=== PATIENT | male | born 1950 | race African-American/Black ===

== ENCOUNTER 2016-05-28 18:22 | Emergency (ER) | payer MEDICARE ==
[~2016-05-28 18:22] MED LIST: ASPI325T PO; FERR325T PO; REDPOW; VITA100017 PO; VITA20002 PO; ZOFR4TAB3 SL
[2016-05-28 18:26] VITALS: BP 154/86; PULSE 84; RESP 18; TEMP 98.6; O2SAT 98
[2016-05-28] MEDS ORDERED: SODIUM CHLOR 0.9% 1000 ML INJ 1,000 ML IV SCH (19:08)
--- NOTE | 2016-05-28 19:14 | PD ---
HPI Chief Complaint: Abdominal Pain Time Seen by Provider: 19:02 Travel History International Travel<30 days: No Contact w/Intl Traveler<30days: No Traveled to known affect area: No History of Present Illness HPI The patient is a 65-year-old male who presents to emergency department for abdominal pain. The patient has a history of previous CVA with hemorrhagic conversion and takes an aspirin daily. The patient however, is unable to speak after his previous CVA. The patient also has a history of diverticulitis with previous perforation, partial colectomy, colostomy with takedown, performed by his general surgeon, Dr. Servin. The states the patient is been doing well for several years, however, approximately 2 hours prior to arrival developed severe left lower quadrant abdominal pain. He's had multiple episodes of nausea and vomiting. His last bowel movement was earlier today, normal per his recollection, according to the . The patient is unable to provide any history, however, family bedside provides history. The also states the patient is sensitive to pain medication requests a low- dose of morphine, states he almost went into a coma with Dilaudid. Symptoms are moderate, possibly exacerbated by history of diverticulitis previous surgery , no current alleviating factors. The patient's primary physician is Dr. Hallman. [facility] Past Medical History Cancer: No Cardiovascular Problems: Yes (RAPID HEART RATE WITH SEPSIS AND DEHYDRATION) Cerebrovascular Accident: Yes (X2) Diabetes: Yes Diminished Hearing: No Diverticulitis: Yes Endocrine: No Gastrointestinal Disorders: Yes (COLOSTOMY, HX DIVERTICULITIES) GERD: Yes Genitourinary: No Hepatitis: No Hiatal Hernia: Yes Hypertension: Yes Immune Disorder: No Kidney Stones: Yes Musculoskeletal: No Neurologic: Yes (CVA - 2012, EXPRESSIVE APHASIA) Psychiatric: No Reproductive: No Respiratory: Yes Immunizations Current: No Sleep Apnea: Yes Thyroid Disease: No Past Surgical History Abdominal Surgery: Yes (colorectal surgery 2 times) AICD: No Cardiac Surgery: Yes Joint Replacement: No Pacemaker: No Other Surgery: Yes Social History Alcohol Use: No Tobacco Use: No Substance Use: No Allergies-Medications (Allergen,Severity, Reaction): Coded Allergies: Dilaudid (Verified Allergy, Severe, 05/28/16) GOES INTO COMA Reported Meds & Prescriptions Reported Meds & Active Scripts Active Reported Aspirin 325 Mg Tab 325 Mg PO DAILY Review of Systems Except as stated in HPI: all other systems reviewed are Neg General / Constitutional: No: Fever Cardiovascular: No: Chest Pain or Discomfort Respiratory: No: Shortness of Breath Gastrointestinal: Positive: Nausea, Vomiting, Abdominal Pain, No: Diarrhea, Constipation, Changes in Bowel Habits Physical Exam Narrative GENERAL: Awake, alert, 65-year-old male appears his stated age and appears in moderate discomfort. SKIN: Diaphoretic.. HEAD: Atraumatic. Normocephalic. EYES: No scleral icterus noted. ENT: No nasal bleeding or discharge. Mucous membranes pink and moist. NECK: Trachea midline. No JVD. CARDIOVASCULAR: Regular rate and rhythm. No murmur appreciated. RESPIRATORY: No accessory muscle use. Clear to auscultation. Breath sounds equal bilaterally. GASTROINTESTINAL: Abdomen tender palpation left lower quadrant and left upper quadrant. Mid abdominal scar. MUSCULOSKELETAL: No obvious deformities. No clubbing. No cyanosis. No edema. NEUROLOGICAL: Awake and alert. No obvious cranial nerve deficits. Motor grossly within normal limits. His able to say no, which means yes according to the .. PSYCHIATRIC: Appropriate mood and affect; insight and judgment normal. Data Data Last Documented VS Vital Signs Date Time Temp Pulse Resp B/P Pulse Ox O2 Delivery O2 Flow Rate FiO2 05/28/16 18:26 98.6 84 18 154/86 98 Orders Complete Blood Count With Diff (05/28/16 19:08) Comprehensive Metabolic Panel (05/28/16 19:08) Lipase (05/28/16 19:08) Lactic Acid (05/28/16 19:08) Prothrombin Time / Inr (Pt) (05/28/16 19:08) Act Partial Throm Time (Ptt) (05/28/16 19:08) Urinalysis - C+S If Indicated (05/28/16 19:08) Ct Abd/Pel W/O Iv Contrast (05/28/16 19:08) Iv Access Insert/Monitor (05/28/16 19:08) Ecg Monitoring (05/28/16 19:08) Oximetry (05/28/16 19:08) Morphine Inj (Morphine Inj) (05/28/16 19:15) Ondansetron Inj (Zofran Inj) (05/28/16 19:15) Sodium Chlor 0.9% 1000 Ml Inj (Ns 1000 M (05/28/16 19:08) Sodium Chloride 0.9% Flush (Ns Flush) (05/28/16 19:15) Electrocardiogram (05/28/16 19:08) Chest, Single Ap (05/28/16 19:08) Blood Culture (05/28/16 19:08) Ketorolac Inj (Toradol Inj) (05/28/16 20:00) Labs Laboratory Tests Test 05/28/16 05/28/16 05/28/16 19:24 19:45 20:35 White Blood Count 5.9 TH/MM3 Red Blood Count 5.11 MIL/MM3 Hemoglobin 14.5 GM/DL Hematocrit 44.6 % Mean Corpuscular Volume 87.3 FL Mean Corpuscular Hemoglobin 28.3 PG Mean Corpuscular Hemoglobin 32.4 % Concent Red Cell Distribution Width 13.3 % Platelet Count 229 TH/MM3 Mean Platelet Volume 9.7 FL Neutrophils (%) (Auto) 53.1 % Lymphocytes (%) (Auto) 35.0 % Monocytes (%) (Auto) 10.5 % Eosinophils (%) (Auto) 0.7 % Basophils (%) (Auto) 0.7 % Neutrophils # (Auto) 3.1 TH/MM3 Lymphocytes # (Auto) 2.1 TH/MM3 Monocytes # (Auto) 0.6 TH/MM3 Eosinophils # (Auto) 0.0 TH/MM3 Basophils # (Auto) 0.0 TH/MM3 CBC Comment AUTO DIFF Differential Comment AUTO DIFF CONFIRMED Platelet Estimate NORMAL Platelet Morphology Comment NORMAL Sodium Level 139 MEQ/L Potassium Level 4.9 MEQ/L Chloride Level 108 MEQ/L Carbon Dioxide Level 25.7 MEQ/L Anion Gap 5 MEQ/L Blood Urea Nitrogen 13 MG/DL Creatinine 1.55 MG/DL Estimat Glomerular Filtration 55 ML/MIN Rate Random Glucose 149 MG/DL Lactic Acid Level 2.1 mmol/L Calcium Level 8.5 MG/DL Total Bilirubin 0.7 MG/DL Aspartate Amino Transf 20 U/L (AST/SGOT) Alanine Aminotransferase 20 U/L (ALT/SGPT) Alkaline Phosphatase 73 U/L Total Protein 7.5 GM/DL Albumin 3.9 GM/DL Lipase 129 U/L Prothrombin Time 11.4 SEC Prothromb Time International 1.0 RATIO Ratio Activated Partial 21.3 SEC Thromboplast Time Urine Color YELLOW Urine Turbidity CLEAR Urine pH 6.0 Urine Specific [place] 1.013 Urine Protein TRACE mg/dL Urine Glucose (UA) NEG mg/dL Urine Ketones NEG mg/dL Urine Occult Blood MOD Urine Nitrite NEG Urine Bilirubin NEG Urine Urobilinogen LESS THAN 2.0 MG/DL Urine Leukocyte Esterase NEG Urine RBC 83 /hpf Urine WBC 1 /hpf Microscopic Urinalysis Comment CULT NOT INDICATED MDM Medical Decision Making Medical Screen Exam Complete: Yes Emergency Medical Condition: Yes Medical Record Reviewed: Yes Interpretation(s) EKG reveals normal sinus rhythm with a rate 83. Q wave in lead 3 with inverted T-wave. Last Impressions Chest X-Ray 05/28/161907 Signed Impressions: Service Date/Time: May 19:34 - CONCLUSION: No evidence of acute cardiopulmonary disease. Jesus Loo MD Abdomen/Pelvis CT 05/28/161907 Signed Impressions: Service Date/Time: , May 28, 2016 19:28 - CONCLUSION: 1. 3 mm left ureterovesical junction stone with associated mild acute obstructive uropathy. This is presumably causing the left lower quadrant pain although the patient does have a left lower quadrant spigelian hernia containing small bowel that appears slightly indurated. However, no hernias not new and there is no associated obstruction. 2. Previous colon surgery. No obstruction or acute inflammatory changes. 3. No change umbilical hernia with small bowel protruding into the bulge but not frankly herniated and without evidence of incarceration or obstruction. Jesus Loo MD Laboratory Tests Test 05/28/16 05/28/16 05/28/16 19:24 19:45 20:35 White Blood Count 5.9 TH/MM3 Red Blood Count 5.11 MIL/MM3 Hemoglobin 14.5 GM/DL Hematocrit 44.6 % Mean Corpuscular Volume 87.3 FL Mean Corpuscular Hemoglobin 28.3 PG Mean Corpuscular Hemoglobin 32.4 % Concent Red Cell Distribution Width 13.3 % Platelet Count 229 TH/MM3 Mean Platelet Volume 9.7 FL Neutrophils (%) (Auto) 53.1 % Lymphocytes (%) (Auto) 35.0 % Monocytes (%) (Auto) 10.5 % Eosinophils (%) (Auto) 0.7 % Basophils (%) (Auto) 0.7 % Neutrophils # (Auto) 3.1 TH/MM3 Lymphocytes # (Auto) 2.1 TH/MM3 Monocytes # (Auto) 0.6 TH/MM3 Eosinophils # (Auto) 0.0 TH/MM3 Basophils # (Auto) 0.0 TH/MM3 CBC Comment AUTO DIFF Differential Comment AUTO DIFF CONFIRMED Platelet Estimate NORMAL Platelet Morphology Comment NORMAL Sodium Level 139 MEQ/L Potassium Level 4.9 MEQ/L Chloride Level 108 MEQ/L Carbon Dioxide Level 25.7 MEQ/L Anion Gap 5 MEQ/L Blood Urea Nitrogen 13 MG/DL Creatinine 1.55 MG/DL Estimat Glomerular Filtration 55 ML/MIN Rate Random Glucose 149 MG/DL Lactic Acid Level 2.1 mmol/L Calcium Level 8.5 MG/DL Total Bilirubin 0.7 MG/DL Aspartate Amino Transf 20 U/L (AST/SGOT) Alanine Aminotransferase 20 U/L (ALT/SGPT) Alkaline Phosphatase 73 U/L Total Protein 7.5 GM/DL Albumin 3.9 GM/DL Lipase 129 U/L Prothrombin Time 11.4 SEC Prothromb Time International 1.0 RATIO Ratio Activated Partial 21.3 SEC Thromboplast Time Urine Color YELLOW Urine Turbidity CLEAR Urine pH 6.0 Urine Specific [place] 1.013 Urine Protein TRACE mg/dL Urine Glucose (UA) NEG mg/dL Urine Ketones NEG mg/dL Urine Occult Blood MOD Urine Nitrite NEG Urine Bilirubin NEG Urine Urobilinogen LESS THAN 2.0 MG/DL Urine Leukocyte Esterase NEG Urine RBC 83 /hpf Urine WBC 1 /hpf Microscopic Urinalysis Comment CULT NOT INDICATED Differential Diagnosis Differential diagnosis includes diverticulitis, diverticular abscess, perforated viscus, ischemic bowel, volvulus, pyelonephritis, nephrolithiasis, pancreatitis. Narrative Course IV was established, labs are drawn and sent, and the patient was placed on cardiac telemetry monitoring and continuous pulse oximetry monitoring. Upright chest x-ray was obtained and CT of abdomen and pelvis was ordered. 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 The patient was kept nothing by mouth. CT of the abdomen and pelvis reveals a 3 mm kidney stone at the left UVJ junction, presumably because the patient's pain. The patient does have a hernia on CT which is chronic, there is mild induration, but no obstruction. Patient was reevaluated at 7:58 PM, his symptoms had significantly improved. UA will be sent to lab to evaluate for possible coinciding infection, the patient was provided Toradol 15 mg intravenously. UA reveals RBCs and 83 and blood, no evidence of infection. White count is normal. Patient was reassessed once again at 9:10 PM, his symptoms have resolved. Patient will be provided a strainer for urine, he will be placed on ibuprofen, Lortab, and Flomax. I did advise the family to monitor for orthostatic hypotension and Flomax in the taken at night. He will be provided a copy of his CT and labs at discharge to follow-up with his primary physician. Return if symptoms worsen or progress. Diagnosis Primary Impression: Nephrolithiasis Patient Instructions: General Instructions Additional Instructions: Please provide a patient a strainer. Please provide a patient a copy of his CT results, x-ray results, and lab results at discharge. Medications as directed. Follow-up with urology as needed. Return if symptoms worsen or progress. Med/Other Pt SpecificInfo: Prescription(s) given Scripts Ibuprofen 400 Mg [id number] Mg PO Q6H PRN (PAIN SCALE 1 TO 10) #20 TAB Ref 0 Prov:Magdiel Hearn MD 05/28/16 Hydrocodone-Acetaminophen ([place])5-325 mg Tab1 Tab PO Q6H PRN (PAIN) #20 TAB Ref 0 Prov:Magdiel Hearn MD 05/28/16 Tamsulosin (Flomax)0.4 Mg Cap0.4 Mg PO HS 7 Days Ref 0 Prov:Magdiel Hearn MD 05/28/16 Disposition: 01 DISCHARGE HOME Condition: Stable Magdiel Hearn MD May 28, 2016 19:14
[2016-05-28] MEDS ORDERED: ONDANSETRON HCL 4 MG/2 ML VIAL IVP ONE (19:15)
[2016-05-28] MEDS ORDERED: MORPHINE SULFATE 4 MG/ML INJ IV PUSH ONE (19:15)
[2016-05-28] MEDS ORDERED: SODIUM CHLORIDE 0.9% FLUSH 5 ML FLUSH IVF PRN (19:15)
--- NOTE | 2016-05-28 19:55 | RADRPT ---
EXAM DATE/TIME: 05/28/2016 19:28 [facility] COMPARISON: CT ABDOMEN & PELVIS W CONTRAST, October 18, 2014, 14:22. INDICATIONS : LLQ abdominal pain today. ORAL CONTRAST: No oral contrast ingested. RADIATION DOSE: 15.76 CTDIvol (mGy) MEDICAL HISTORY : Hypertension. Diverticulitis. Renal calculi. SURGICAL HISTORY : Colostomy. Colorectal surgery. ENCOUNTER: Initial ACUITY: 1 day PAIN SCALE: 6/10 LOCATION: Left lower quadrant Abdomen/pelvis TECHNIQUE: Volumetric scanning of the abdomen and pelvis was performed. Using automated exposure control and ad justment of the mA and/or kV according to patient size, radiation dose was kept as low as reasonably achievable to obtain optimal diagnostic quality images. FINDINGS: Left spigelian hernia small bowel at the umbilicus a short segment of small bowel again noted. No obs truction seen and this is not new but the small bowel and surrounding fat appear slightly indurated. This is the site of previous colostomy that was subsequently taken down. The defect measures about 2 cm across. There is a broad bulge containing small bowel at the umbilicus. There is a 3 mm stone of the left ureterovesical junction causing mild hydronephrosis and hydroureter . The stone was previously seen in the left mid zone. Noncontrast appearance of the liver, spleen, pancreas, adrenal glands and right kidney within normal limits. Prostate is enlarged. Changes of present previous colonic surgery again noted. No obstruction or inflammatory changes. There is an IVC filter. CONCLUSION: 1. 3 mm left ureterovesical junction stone with associated mild acute obstructive uropathy. This is p resumably causing the left lower quadrant pain although the patient does have a left lower quadrant s pigelian hernia containing small bowel that appears slightly indurated. However, no hernias not new a nd there is no associated obstruction. 2. Previous colon surgery. No obstruction or acute inflammatory changes. 3. No change umbilical hernia with small bowel protruding into the bulge but not frankly herniated an d without evidence of incarceration or obstruction. Jesus Loo MD on May 28, 2016 at 19:46 Board Certified Radiologist. This report was verified electronically.
--- NOTE | 2016-05-28 19:56 | RADRPT ---
EXAM DATE/TIME: 05/28/2016 19:34 [facility] COMPARISON: CHEST SINGLE AP, August 28, 2012, 8:10. INDICATIONS : Shortness of breath. MEDICAL HISTORY : None. SURGICAL HISTORY : None. ENCOUNTER: Initial ACUITY: 1 day PAIN SCORE: 0/10 LOCATION: Bilateral chest FINDINGS: A single view of the chest demonstrates the lungs to be symmetrically aerated without evidence of mas s, infiltrate or effusion. The cardiomediastinal contours are unremarkable. Osseous structures are intact. CONCLUSION: No evidence of acute cardiopulmonary disease. Jesus Loo MD on May 28, 2016 at 19:54 Board Certified Radiologist. This report was verified electronically.
[2016-05-28] MEDS ORDERED: KETOROLAC TROMETHAMINE 30 MG/ML (IVP) VIAL IV PUSH ONE (20:00)
[2016-05-28 20:03] LABS: ANION GAP 5 MEQ/L (5-15)
[2016-05-28] MEDS ORDERED: ASPI325T PO (20:08)
[2016-05-28 20:10] LABS: ALKALINE PHOSPHATASE 73 U/L (45-117); ALT (GPT) 20 U/L (12-78); AST (GOT) 20 U/L (15-37); BICARBONATE 25.7 MEQ/L (21.0-32.0); BLOOD UREA NITROGEN 13 MG/DL (7-18); CHLORIDE 108 MEQ/L (98-107); GLOMERULAR FILTRATION RATE 55 ML/MIN (>89); POTASSIUM 4.9 MEQ/L (3.5-5.1); SODIUM (NA) 139 MEQ/L (136-145); TOTAL BILIRUBIN ADULT 0.7 MG/DL (0.2-1.0)
[2016-05-28 20:25] LABS: AUTOMATED NEUTROPHIL # 3.1 TH/MM3 (1.8-7.7); BASOPHIL % 0.7 % (0.0-2.0); EOSINOPHIL % 0.7 % (0.0-4.0); HEMATOCRIT 44.6 % (39.0-51.0); LYMPHOCYTE # 2.1 TH/MM3 (1.0-4.8); MEAN CELL VOLUME 87.3 FL (80.0-100.0); MEAN CORPUSCULAR HEMOGLOBIN 28.3 PG (27.0-34.0); MEAN CORPUSCULAR HGB CONC 32.4 % (32.0-36.0); MONO % 10.5 % (0.0-8.0); NEUT % 53.1 % (16.0-70.0); PLATELET COUNT 229 TH/MM3 (150-450); RED BLOOD COUNT 5.11 MIL/MM3 (4.50-5.90); RED CELL DISTRIBUTION WIDTH 13.3 % (11.6-17.2); WHITE BLOOD COUNT 5.9 TH/MM3 (4.0-11.0)
[2016-05-28 20:26] LABS: HEMO FLAGS AUTO DIFF
[2016-05-28 20:31] LABS: APTT (PATIENT) 21.3 SEC (24.3-30.1); PROTHROMBIN TIME - PATIENT 11.4 SEC (9.8-11.6)
[2016-05-28 20:55] LABS: BLOOD, URINE MOD (NEG); COMMENT (UR) CULT NOT INDICATED; CULTURE IF INDICATED CULT NOT INDICATED; GLUCOSE,URINE NEG (NEG); KETONE, URINE NEG (NEG); NITRITE,URINE NEG (NEG); URINE COLOR YELLOW (YELLW/STRAW)
[2016-05-28 21:00] VITALS: BP 135/72; PULSE 80; RESP 18; O2SAT 98
[2016-05-28 21:02] LABS: PLATELET ESTIMATE SMEAR NORMAL (NORMAL); PLATELET MORPHOLOGY NORMAL (NORMAL); SCAN/DIFF AUTO DIFF CONFIRMED
[2016-05-28] MEDS ORDERED: IBUP400T20 PO (21:13)
[2016-05-28] MEDS ORDERED: NORC5TAB PO (21:13)
[2016-05-28] MEDS ORDERED: TAMS5CAP PO (21:13)
--- NOTE | 2016-05-29 22:49 | EKG ---
Date Performed: 05/28/2016 Time Performed: 19:01:19 PTAGE: 65 years EKG: Sinus rhythm NORMAL ECG PREVIOUS TRACING : 08/18/2012 07.54 DOCTOR: Manish Giron Interpretating Date/Time 05/29/2016 22:45:07
== END 2016-05-28 21:53 | disposition home or self-care (01) ==
LOC: NEPC 18:22
DX: N20.0 Calculus of kidney (principal); G47.30 Sleep apnea, unspecified; Z79.82 Long term (current) use of aspirin; Z86.73 Personal history of transient ischemic attack (TIA), and cerebral infarction without residual deficits; I10 Essential (primary) hypertension
CPT/HCPCS: 71010; 74176; 80053; 81001; 83605; 83690; 85025; 85610; 85730; 87040; 93005; 96374; 96375; 99284; J1885; J2270; J2405; J7030